=== PATIENT | female | born 1990 | race Caucasian/White ===

== ENCOUNTER 2017-10-20 01:38 | Emergency (ER) | payer SELFPAY ==
[~2017-10-20] VITALS: Ht 154.9 cm; Wt 70.0 kg
[~2017-10-20 01:38] MED LIST: SERT50TA PO
[2017-10-20] MEDS ORDERED: ONDANSETRON ODT 4 MG ONE (02:08)
[2017-10-20] MEDS ORDERED: ONDANSETRON ODT 4 MG PO ONE (02:30)
[2017-10-20 04:09] VITALS: BP 101/62
== END 2017-10-20 04:54 | disposition home or self-care (01) ==
LOC: ED 04:13
DX: F10.120 Alcohol abuse with intoxication, uncomplicated (principal)
CPT/HCPCS: 99283; Q0162